=== PATIENT | male | born 1950 | race Caucasian/White ===

== ENCOUNTER 2017-04-01 10:18 | Inpatient (IN) | payer OTHER ==
[~2017-04-01] VITALS: Ht 190.5 cm; Wt 94.8 kg
--- NOTE | ~2017-04-01 | ST ---
[place], [place] EXERCISE STRESS TEST REPORT NAME: LOUANN GOODE UNIT #: [id number] ROOM: 402 DOCTOR: JOEY SAHU MD BIRTHDATE: [birth year] DOS: 04/02/2017 INDICATION: Chest pain. PROCEDURE: The patient was exercised on a treadmill using Nas protocol, the patient exercised for 7 minutes and 15 seconds, reaching 88% of his maximum predicted heart rate. Maximum work load was 9 mets. Test was terminated due to shortness of breath and achievement of target heart rate. The patient did develop chest pain, graded 2/10 late in the stress test and resolved within 1-2 minutes into recovery. BLOOD PRESSURE RESPONSE: Resting blood pressure 126/84 with ending blood pressure 160/60. ELECTROCARDIOGRAM INTERPRETATION: The resting electrocardiogram showed sinus bradycardia, heart rate of 59. RSR prime in V1, baseline PVCs were noticed. At the peak of the stress test, there was no evidence of any significant ST or T-wave changes suggestive of myocardial ischemia. No arrhythmias were noted. SUMMARY: 1. Adequate stress test with good functional capacity. 2. ____ treadmill stress test for stress induced myocardial ischemia by symptomatology. 3. Negative treadmill stress test for stress induced myocardial ischemia by EKG criteria. 4. Normal blood pressure at rest with normal blood pressure response to exercise. 5. No arrhythmias were noted. 6. Nuclear images will be reported separately. JOEY SAHU MD CM:STRESS:EXERCISE STRESS TEST REPORT [id number] JOEY SAHU MD
[2017-04-01 10:18] VITALS: BP 141/66
[2017-04-01 10:36] LABS: BASO % 0.4 % (0.0-1.0); EOS # 0.1 10*3/uL (0.0-0.4); EOS % 0.9 % (1.0-4.0); HEMATOCRIT 47.7 % (42.0-52.0); HEMOGLOBIN 15.8 g/dl (14.0-18.0); LYMPH # 2.1 10*3/uL (1.3-4.4); LYMPH % 24.3 % (27.0-41.0); MEAN CELL VOLUME 90.7 fl (80.0-94.0); MEAN CORPUSCULAR HGB CONC 33.1 g/dl (33.0-37.0); MEAN PLATELET VOLUME 8.9 fl (9.6-12.3); MONO # 0.6 10*3/uL (0.1-1.0); MONO % 6.7 % (3.0-9.0); NEUT # 5.7 10*3/uL (2.3-7.9); NEUT % 67.2 % (47.0-73.0); PLATELET COUNT AUTOMATED 178 10*3/uL (130-400); RED BLOOD COUNT 5.26 10*6/uL (4.50-5.90); RED CELL DISTRI WIDTH 12.7 % (0-14.5); WHITE BLOOD COUNT 8.5 10*3/uL (4.8-10.8)
[2017-04-01 10:45] LABS: ACT PARTIAL THROMBO TIME 26.4 SECONDS (20.8-31.5)
[2017-04-01 10:54] LABS: ALBUMIN 3.9 gm/dl (3.1-4.5); ALKALINE PHOSPHATASE 109 U/L (45-117); BUN 10 mg/dl (7-24); CHLORIDE 104 mmol/L (98-107); CKMB 1.6 ng/ml (0.5-3.6); CPK 93 U/L (39-308); CREATININE 0.98 mg/dL (0.70-1.30); LIPASE 434 U/L (73-393); MAGNESIUM 2.3 mg/dL (1.5-2.1); POTASSIUM 4.3 mmol/L (3.5-5.1); SGOT/AST 13 IU/L (3-35); SGPT/ALT 29 U/L (12-78); SODIUM 137 mmol/L (136-145); TOTAL PROTEIN 7.9 gm/dL (6.4-8.2)
[2017-04-01 11:30] VITALS: BP 128/71
[2017-04-01 11:35] LABS: TROPONIN I < 0.015 ng/ml (<0.045)
[2017-04-01 12:30] VITALS: BP 125/89
--- NOTE | 2017-04-01 12:31 | NUR ---
PT HAS REMAINED AWAKE AND ALERT. TELLS ME NOW THAT HE FEELS FINE AND HAS NO CO PAIN. HE WILL BE ADMITTED. RUI BOX
--- NOTE | 2017-04-01 12:58 | NUR ---
A 66, admitted to , under the services of URIEL Houston DO with a diagnosis of CHEST PAIN R/O AK. Chief complaint is FATIGUE, SWEATING, MIDSTERNAL CP. Patient arrived via ambulance from ER. Monitor applied. Initial assessment completed. Vital signs taken and recorded. URIEL HOUSTON DO notified of admission to the unit. Orders received. See assessment for past medical history, medications and allergies. Patient and/or family oriented to unit. [facility] visitation policy reviewed. Clothing/patient valuable form completed. BASSEM MCKINNEY
[2017-04-01 13:26] VITALS: BP 140/91
[2017-04-01] MEDS ORDERED: COLACE100 MG PO (13:30)
[2017-04-01] MEDS ORDERED: LIPITOR40 MG PO (13:31)
[2017-04-01] MEDS ORDERED: LOPRESSOR25 MG PO (13:31)
[2017-04-01] MEDS ORDERED: ZESTRIL2.5 MG PO (13:31)
--- NOTE | 2017-04-01 13:31 | NUR ---
HOME MEDS UPDATED BY LIST PROVIDED BY .
--- NOTE | 2017-04-01 14:20 | NUR ---
CALL PLACED TO DR LABOY AT THIS TIME TO INQUIRE ABOUT ADMISSION ORDERS AND TO NOTIFY THAT PT IS HERE ON THE FLOOR, NO COMPLAINTS.
--- NOTE | 2017-04-01 15:21 | NUR ---
SPOKE WITH YURIY FROM [facility]. NOTIFIED OF NEW CONSULT FOR PT.
[2017-04-01 16:00] VITALS: BP 126/75
--- NOTE | 2017-04-01 18:00 | NUR ---
PT RESTING IN BED, NO DISTRESS NOTED. CALL LIGHT WITHIN REACH. NPO AFTER MIDNIGHT STATUS REINFORCED.
[2017-04-01 20:00] VITALS: BP 120/57
[2017-04-02] VITALS: BP 108/69
--- NOTE | 2017-04-02 02:15 | NUR ---
DR. LARSON NOTIFIED THAT PATIETN HAD 3 BEATS OF 2ND DEGREE HEART BLOCK.
[2017-04-02 08:00] VITALS: BP 139/82
[2017-04-02 08:04] LABS: BASO % 0.4 % (0.0-1.0); EOS # 0.1 10*3/uL (0.0-0.4); EOS % 1.3 % (1.0-4.0); HEMATOCRIT 51.4 % (42.0-52.0); HEMOGLOBIN 17.4 g/dl (14.0-18.0); LYMPH # 1.7 10*3/uL (1.3-4.4); LYMPH % 24.1 % (27.0-41.0); MEAN CELL VOLUME 90.2 fl (80.0-94.0); MEAN CORPUSCULAR HGB 30.5 pg (27.0-31.0); MEAN CORPUSCULAR HGB CONC 33.9 g/dl (33.0-37.0); MEAN PLATELET VOLUME 9.3 fl (9.6-12.3); MONO # 0.5 10*3/uL (0.1-1.0); MONO % 7.5 % (3.0-9.0); NEUT # 4.7 10*3/uL (2.3-7.9); NEUT % 66.4 % (47.0-73.0); PLATELET COUNT AUTOMATED 192 10*3/uL (130-400); RED CELL DISTRI WIDTH 12.8 % (0-14.5)
--- NOTE | 2017-04-02 08:15 | NUR ---
PT VERY UPSET AT THIS TIME, WHEN THIS RN GOES INTO ASSESS PT ASKING HOW HE IS DOING, HE STATES "NOT REAL GOOD, NO ONE IS DOING ANYTHING FOR ME AND I HAVEN'T EVEN SEEN A HEART DOCTOR, WHICH IS WHY I'M HERE." EXPLAINED TO THE PT BECAUSE HE CAME IN YESTERDAY AFTERNOON THE PRECISE WINDER HAD ALREADY ROUNDED AND HE WOULD BE SEEN TODAY FOR HIS STRESS TEST AND HE IS GOING TO HAVE AN ECHOCARDIOGRAM DONE THIS MORNING WELL. EXPLAINED TO PT I WOULD CALL CARDIAC REHAB TO INQUIRE ABOUT THIS TIME OF HIS STRESS TEST. CALLED CARDIAC REHAB, THEY STATED PT WOULD BE DONE AT 0930. SPOKE WITH PT AND HE WAS HAPPY ABOUT THIS. CARDIAC REHAB THEN CALLED BACK, STATING THAT DR YOST WOULD BE PERFORMING THE STRESS TEST AND HE WOULDN'T BE IN UNTIL [id number]. SPOKE WITH SHIFT DIRECTOR REGARDING THIS, AND WE BOTH WENT IN TO UPDATE PT ON THIS CHANGE, PT UPSET, BUT VERBALIZED UNDERSTANDING.
[2017-04-02 08:37] LABS: BUN 13 mg/dl (7-24); CHLORIDE 104 mmol/L (98-107); CHOLESTEROL 132 mg/dL (<200); CREATININE 0.95 mg/dL (0.70-1.30); HDL CHOLESTEROL 42 mg/dl (40-60); LDL CHOLESTEROL 63 mg/dL (9-159); MAGNESIUM 2.5 mg/dL (1.5-2.1); PHOSPHOROUS 2.5 mg/dL (2.5-4.9); POTASSIUM 4.2 mmol/L (3.5-5.1); SODIUM 136 mmol/L (136-145); TRIGLYCERIDES 136 mg/dl (<150); VLDL CHOLESTEROL 27 mg/dL (6-40)
--- NOTE | 2017-04-02 09:00 | NUR ---
case management attempted to visit with patient, patient was out of room for testing, will see later today
--- NOTE | 2017-04-02 10:02 | NUR ---
PT OFF FLOOR FOR STRESS TEST.
--- NOTE | 2017-04-02 10:30 | NUR ---
INFORMED CONSENT OBTAINED FOR CARDIOLITE STRESS TEST WITH DR SAHU. RESTING EKG NSR WITH RARE PVC. SUPINE HR 60 WITH A BP OF 126/84. STANDING HR 68 WITH A BP OF 122/72. PT COMPLETED 7:15 MIN OF A VELIA PROTOCOL COMPLETING 1:15 OF STAGE III AT 3.4 MPH AND 14% GRADE. REACHED A PEAK HR OF 138 WHICH IS 88% OF PREDICTED MAX WITH A PEAK BP OF 190/80. TEST TERMINATED DUE TO FATIGUE. C/O CHEST HEAVINESS DURING STAGE II THAT WAS RELIEVED BY 2 MIN OF RECOVERY. HAS A GOOD EXERCISE TOLERANCE. LAST RECOVERY HR 98 AND BP OF 164/80. AWAITING SCANNING IN STABLE CONDITION.
--- NOTE | 2017-04-02 11:50 | NUR ---
SPOKE WITH DR LABOY REGARDING PT COMING BACK FROM STRESS TEST, STATES OK TO GIVE PT REGULAR DIET.
[2017-04-02 12:00] VITALS: BP 128/84
[2017-04-02] MEDS ORDERED: IMDUR SA30 MG PO (15:37)
[2017-04-02 16:00] VITALS: BP 138/74
--- NOTE | 2017-04-02 18:10 | NUR ---
PT BECOMING VERY IMPATIENT, IS INQUIRING ABOUT HIS DISCHARGE. EXPLAINED TO PT THAT WE ARE STILL AWAITING HIS ECHO RESULTS. SPOKE WITH DR LABOY REGARDING THE RESULTS, STATED IT STILL HASN'T BEEN READ, SHE IS GOING TO SPEAK WITH THE RESIDENT WITH THE CARDIOLOGY GROUP.
--- NOTE | 2017-04-02 18:35 | NUR ---
PER DR LABOY, PT OK TO BE DISCHARGED.
--- NOTE | 2017-04-02 18:53 | NUR ---
Discharge instructions reviewed with patient/family. Patient receptive and verbalizes understanding. Follow-up care arranged. Written instructions given to patient/family. Pt denied need for transport to [facility]. BASSEM MCKINNEY
== END 2017-04-02 18:53 | disposition home or self-care (01) | DRG 282 ==
LOC: ED 10:18 → 4E 12:13 → EDHOLD 12:13 → 4E 12:29
PROVIDERS: Family Medicine Adult Medicine; Internal Medicine; ADMIT Internal Medicine
PROC: 4A02XM4 Measurement of Cardiac Total Activity, External Approach (ICD-10-PCS; principal; 2017-04-02)
DX: I21.3 ST elevation (STEMI) myocardial infarction of unspecified site (principal); I44.1 Atrioventricular block, second degree; S29.011A Strain of muscle and tendon of front wall of thorax, initial encounter; I10 Essential (primary) hypertension; D72.810 Lymphocytopenia; R00.1 Bradycardia, unspecified; F41.9 Anxiety disorder, unspecified; K21.9 Gastro-esophageal reflux disease without esophagitis; E83.41 Hypermagnesemia; I48.0 Paroxysmal atrial fibrillation; E78.5 Hyperlipidemia, unspecified; E78.00 Pure hypercholesterolemia, unspecified; X58.XXXA Exposure to other specified factors, initial encounter; R73.9 Hyperglycemia, unspecified; Z87.891 Personal history of nicotine dependence; I25.2 Old myocardial infarction; Z82.49 Family history of ischemic heart disease and other diseases of the circulatory system; Z80.9 Family history of malignant neoplasm, unspecified; Z79.899 Other long term (current) drug therapy; Y93.89 Activity, other specified; Y92.89 Other specified places as the place of occurrence of the external cause; Y99.8 Other external cause status

== ENCOUNTER 2019-08-22 10:36 | Inpatient (IN) | payer OTHER, MEDICARE ==
[2019-08-22] VITALS (7 sets, daily range): BP systolic 125–181; BP diastolic 70–101
[~2019-08-22] VITALS: Ht 190.5 cm; Wt 93.2 kg
[~2019-08-22 10:36] MED LIST: ASPIRIN ADULT L81 M1 PO; COLACE100 MG PO; GLUCOPHAGE1000 MG PO; IMDUR SA30 MG PO; LIPITOR40 MG PO; LISINOPRIL5 MG PO; LOPRESSOR25 MG PO; TAMIFLU 75MG CA75 MG PO; ZESTRIL2.5 MG PO
[2019-08-22 11:02] LABS: BASO % 0.4 % (0.0-1.0); EOS # 0.2 10*3/uL (0.0-0.4); EOS % 1.9 % (1.0-4.0); HEMATOCRIT 47.3 % (42.0-52.0); HEMOGLOBIN 16.1 g/dl (14.0-18.0); LYMPH # 2.8 10*3/uL (1.3-4.4); LYMPH % 30.4 % (27.0-41.0); MEAN CELL VOLUME 88.1 fl (80.0-94.0); MEAN PLATELET VOLUME 9.9 fl (9.6-12.3); MONO # 0.7 10*3/uL (0.1-1.0); MONO % 7.2 % (3.0-9.0); NEUT # 5.6 10*3/uL (2.3-7.9); NEUT % 59.8 % (47.0-73.0); PLATELET COUNT AUTOMATED 256 10*3/uL (130-400); RED BLOOD COUNT 5.37 10*6/uL (4.50-5.90); RED CELL DISTRI WIDTH 12.4 % (0-14.5); WHITE BLOOD COUNT 9.3 10*3/uL (4.8-10.8)
[2019-08-22 11:41] LABS: ACT PARTIAL THROMBO TIME 26.2 SECONDS (20.0-32.1); INTERNATIONAL NORM RATIO 0.9 (2.0-3.5)
[2019-08-22 11:44] LABS: ALBUMIN 3.9 gm/dl (3.1-4.5); ALKALINE PHOSPHATASE 109 U/L (45-117); BUN 15 mg/dl (7-24); CHLORIDE 101 mmol/L (98-107); CREATININE 1.05 mg/dL (0.70-1.30); POTASSIUM 4.3 mmol/L (3.5-5.1); SGOT/AST 23 IU/L (3-35); SGPT/ALT 58 U/L (12-78); SODIUM 132 mmol/L (136-145); TOTAL PROTEIN 7.5 gm/dL (6.4-8.2)
[2019-08-22 11:46] LABS: TROPONIN I < 0.015 ng/ml (<0.045)
--- NOTE | 2019-08-22 14:20 | NUR ---
A 68, admitted to , under the services of GARY Bliss DO with a diagnosis of CHEST PAIN. Chief complaint is CHEST PAIN ACROSS CHEST, SOB. Patient arrived via bed from ER. Monitor applied. Initial assessment completed. Vital signs taken and recorded. GARY BLISS DO notified of admission to the unit. Orders received. See assessment for past medical history, medications and allergies. Patient and/or family oriented to unit. [facility]. Clothing/patient valuable form completed. ISAAC CANTOR
[2019-08-22] MEDS ORDERED: COLACE100 MG PO (15:15)
[2019-08-22] MEDS ORDERED: VIAGRA100 MG PO (15:16)
--- NOTE | 2019-08-22 20:00 | NUR ---
PT SITTING UP IN BED AWAKE, A&O, PLEASANT AND COOPERATIVE. RESP NONLABORED. NO ACUTE DISTRESS NOTED. NO COMPLAINTS VOICED. NO S/S OFHYPO/HYPERGLYCEMIA NOTED. HEPLOCKS PATENT.
--- NOTE | 2019-08-23 02:57 | NUR ---
Patient resting quietly with no c/o discomfort. Respirations easy and regular. No overt distress. CHICHO SOLIS
[2019-08-23 06:45] LABS: BASO % 0.6 % (0.0-1.0); EOS # 0.2 10*3/uL (0.0-0.4); EOS % 2.7 % (1.0-4.0); HEMATOCRIT 48.1 % (42.0-52.0); LYMPH # 2.3 10*3/uL (1.3-4.4); LYMPH % 32.7 % (27.0-41.0); MEAN CELL VOLUME 90.2 fl (80.0-94.0); MEAN CORPUSCULAR HGB CONC 33.3 g/dl (33.0-37.0); MEAN PLATELET VOLUME 9.1 fl (9.6-12.3); MONO # 0.6 10*3/uL (0.1-1.0); NEUT # 3.8 10*3/uL (2.3-7.9); NEUT % 54.6 % (47.0-73.0); PLATELET COUNT AUTOMATED 199 10*3/uL (130-400); RED BLOOD COUNT 5.33 10*6/uL (4.50-5.90); RED CELL DISTRI WIDTH 12.3 % (0-14.5)
[2019-08-23 07:09] LABS: BUN 18 mg/dl (7-24); CHLORIDE 102 mmol/L (98-107); CHOLESTEROL 108 mg/dL (<200); CREATININE 0.95 mg/dL (0.70-1.30); PHOSPHOROUS 3.9 mg/dL (2.5-4.9); POTASSIUM 3.9 mmol/L (3.5-5.1); SODIUM 133 mmol/L (136-145); TRIGLYCERIDES 205 mg/dl (<150); VLDL CHOLESTEROL 41 mg/dL (6-40)
[2019-08-23 07:20] LABS: HDL CHOLESTEROL 36 mg/dl (40-60); LDL CHOLESTEROL 31 mg/dL (9-159)
[2019-08-23 07:21] LABS: VITAMIN D, 25-HYDROXY 37.7 ng/mL (30-100)
[2019-08-23 08:00] VITALS: BP 142/75
[2019-08-23 08:10] VITALS: BP 142/88
--- NOTE | 2019-08-23 10:01 | NUR ---
PATIENT IN CARDIAC REHAB FOR STRESS TEST AT THIS TIME.
--- NOTE | 2019-08-23 10:55 | NUR ---
INFORMED SIGNED CONSENT OBTAINED FOR LEXISCAN STRESS TEST WITH DR LARSON. RESTING EKG NSR HR 80 T WAVE INVERSION AVR, AVL, AND . BP 126/80. PULSE OX 100% LUNGS CLEAR. PT COMPLETED ONE MINUTE OF A LEXISCAN PROTOCOL WITH PT RECEIVING LEXISCAN 0.4MG IV OVER 10 SECONDS. RARE PVC NOTED. NO ST CHANGES SEEN. PT C/O SOB WITH INJECTION. LAST RECOVERY HR OF 109 BP 122/68. PT IN STABLE CONDITION, AWAITING NUCLEAR IMAGES.
--- NOTE | 2019-08-23 11:19 | NUR ---
Undercoater in to talk to patient. Patient states lives at HOME with . There are 4 OUTSIDE steps in the home. Physician: PACHECO SPEARS [facility]acy: [place] [facility] health services: NONE Patient's level of ADLs: INDEPENDENT Patient has working utilities: YES DME: NONE Follow-up physician's appointment after d/c: WILL BE MADE BY HOSPITALIST NURSE DIRECTOR ON DISCHARGE Does patient want to access PORTAL?: NO Discharge plan PT LIVES AT HOME WITH HIS AND IS INDEPENDENT IN HIS CARE.DENIES HE WILL HAVE ANY NEEDS ON DISCHARGE. PLANS TO RETURN HOME WHEN MEDICALLY STABLE. WILL CONTINUE TO FOLLOW. PT STATES HE WILL HAVE A RIDE HOME.. ANGEL BOOGIE
--- NOTE | 2019-08-23 11:47 | NUR ---
PATIENT RETURNED FROM STRESS TEST, RESUMING MEDS AND DIET.
--- NOTE | 2019-08-23 12:40 | NUR ---
PATIENT INSTRUCTED IN USE OF LANTUS INSULIN; PATIENT WIPED OFF VIAL WITH ALCOHOL, INJECTED 10 UNITS OF AIR INTO VIAL, JUAN UP 10 UNITS OF LANTUS CORRECTLY WITH HELP, SELECTED INJECTION SITE TO LEFT ABDOMEN AND CLEANSED WITH ALCOHOL SWAB PRIOR TO INJECTING THE MEDICATION. REQUIRES MORE INSTRUCTION AND PRACTICE BEFORE SELF-SUFFICIENT WITH INSULIN MANAGEMENT AT HOME, WHICH MAY BE NECESSARY IN THE NEAR FUTURE, PER HOSPITALISTS. PATIENT IS TO FOLLOW UP WITH HIS DOCTOR UPON DISCHARGE TO DISCUSS HIS OPTIONS RE: DIABETES.
--- NOTE | 2019-08-23 14:37 | NUR ---
PER DR. PALACIO, PATIENT'S STRESS TEST IS NEGATIVE AND OK TO DISCHARGE FROM CARDIOLOGY STANDPOINT. DR. MOREAU NOTIFIED.
[2019-08-23] MEDS ORDERED: HUMALOG100 UNIT/1 SC (15:23)
[2019-08-23] MEDS ORDERED: LANTUS SOL100 UNIT/1 SQ (15:23)
--- NOTE | 2019-08-23 15:45 | NUR ---
PATIENT WILL BE GOING HOME WITH PRESCRIPTION FOR INSULIN PENS FOR LANTUS AND HUMALOG WITH SLIDING SCALE. [facility] AND WILL FOLLOW UP WITH HIS PHYSICIAN THERE IN A WEEK OR SOONER. HE HAS BEEN INSTRUCTED TO ATTEND DIABETIC TEACHING CLASSES PROVIDED BY THE HOSPITAL AND HAS BEEN GIVEN THAT INFORMATION. PER PHARMACY, HE MAY ALSO COME IN TOMORROW FOR ADDITIONAL INSTRUCTION BY THE PHARMACIST IF NEEDED. I WILL INSTRUCT THE PATIENT WITH INSULIN SLIDING SCALE PRIOR TO DISCHARGE TODAY ALSO. PREPARING FOR DISCHARGE HOME WITH .
[2019-08-23] MEDS ORDERED: PEN NEEDLE1 EAC2 MC (15:59)
[2019-08-23 16:00] VITALS: BP 139/65
--- NOTE | 2019-08-23 16:30 | NUR ---
PATIENT INSTRUCTED IN USE OF SLIDING SCALE FOR BSG OF 235. PER PATIENT HE HAS A GLUCOMETER AT HOME AND NEEDS NO EDUCATION ON HOW TO CHECK SUGARS WITH A METER. PATIENT CORRECTLY IDENTIFIED CORRECT DOSE ON SLIDING SCALE WHICH HE WILL ALSO BE USING AT HOME, USED CORRECT TECHNIQUE IN DRAWING UP INSULIN AND SELF-ADMINISTERING. PROVIDED ADDITIONAL EDUCATION ON DIFFERENCE BETWEEN LANTUS AND HUMALOG AND WHEN TO NOT ADMINISTER THESE INSULINS. Discharge instructions reviewed with patient/family. Patient receptive and verbalizes understanding. Follow-up care arranged. Written instructions given to patient/family. PATIENT DISCHARGED TO [facility], FOR TRANSPORT HOME BY PRIVATE VEHICLE WITH HIS . LOIS ZELAYA
== END 2019-08-23 16:30 | disposition home or self-care (01) | DRG 392 ==
LOC: ED 10:36 → 5E 13:25 → EDHOLD 13:25 → 5E 13:43
PROVIDERS: Emergency Medicine; Internal Medicine; ADMIT Internal Medicine
PROC: 3E073KZ Introduction of Other Diagnostic Substance into Coronary Artery, Percutaneous Approach (ICD-10-PCS; principal; 2019-08-23)
PROC: 4A02XM4 Measurement of Cardiac Total Activity, External Approach (ICD-10-PCS; principal; 2019-08-23)
DX: K21.9 Gastro-esophageal reflux disease without esophagitis (principal); E44.0 Moderate protein-calorie malnutrition; E87.1 Hypo-osmolality and hyponatremia; I48.91 Unspecified atrial fibrillation; R73.9 Hyperglycemia, unspecified; I10 Essential (primary) hypertension; E78.00 Pure hypercholesterolemia, unspecified; I25.10 Atherosclerotic heart disease of native coronary artery without angina pectoris; Z68.25 Body mass index [BMI] 25.0-25.9, adult; I25.2 Old myocardial infarction; Z95.5 Presence of coronary angioplasty implant and graft; Z79.82 Long term (current) use of aspirin; Z79.899 Other long term (current) drug therapy; Z87.891 Personal history of nicotine dependence; Z82.49 Family history of ischemic heart disease and other diseases of the circulatory system; Z80.8 Family history of malignant neoplasm of other organs or systems

== ENCOUNTER 2020-06-18 10:04 | Observation (INO) | payer OTHER ==
[2020-06-18] VITALS (7 sets, daily range): BP systolic 115–157; BP diastolic 61–102
[~2020-06-18] VITALS: Ht 190.5 cm; Wt 97.6 kg
[~2020-06-18 10:04] MED LIST changes: +HUMALOG100 UNIT/1 SC; +LANTUS SOL100 UNIT/1 SQ; +PEN NEEDLE1 EAC2 MC; +VIAGRA100 MG PO
[2020-06-18 10:23] LABS: BASO % 0.4 % (0.0-1.0); EOS # 0.1 10*3/uL (0.0-0.4); EOS % 1.9 % (1.0-4.0); LYMPH # 1.5 10*3/uL (1.3-4.4); LYMPH % 21.4 % (27.0-41.0); MEAN CELL VOLUME 89.6 fl (80.0-94.0); MEAN CORPUSCULAR HGB 29.3 pg (27.0-31.0); MEAN CORPUSCULAR HGB CONC 32.7 g/dl (33.0-37.0); MEAN PLATELET VOLUME 8.8 fl (9.6-12.3); MONO # 0.5 10*3/uL (0.1-1.0); MONO % 7.7 % (3.0-9.0); NEUT # 4.8 10*3/uL (2.3-7.9); NEUT % 68.3 % (47.0-73.0); PLATELET COUNT AUTOMATED 200 10*3/uL (130-400); RED BLOOD COUNT 5.69 10*6/uL (4.50-5.90)
[2020-06-18 10:35] LABS: ACT PARTIAL THROMBO TIME 29.5 SECONDS (20.0-32.1); INTERNATIONAL NORM RATIO 0.9 (2.0-3.5)
[2020-06-18 10:40] LABS: ALKALINE PHOSPHATASE 99 U/L (45-117); BUN 15 mg/dl (7-24); CHLORIDE 109 mmol/L (98-107); CREATININE 0.99 mg/dL (0.70-1.30); POTASSIUM 4.2 mmol/L (3.5-5.1); SGOT/AST 15 IU/L (3-35); SGPT/ALT 33 U/L (12-78); SODIUM 138 mmol/L (136-145); TOTAL PROTEIN 8.2 gm/dL (6.4-8.2)
[2020-06-18 10:43] LABS: TROPONIN I < 0.015 ng/ml (<0.045)
--- NOTE | 2020-06-18 11:27 | NUR ---
PATIENT HAS A SMALL CUT TO LEFT ELBOW THAT HAPPENED AT HOME THIS MORNING. PATIENT DOES NOT WANT PHOTOGRAPHED AND REPORTS THAT HE HAS NO CONCERN ABOUT IT HAPPENING HERE BECAUSE HE DID IT AT HOME BY ACCIDENT. COVERED WITH BANDAID AT THIS TIME. NOT VISUALIZED. NO ACTIVE BLEEDING.
--- NOTE | 2020-06-18 12:13 | NUR ---
A 69, admitted to , under the services of URIEL Houston DO with a diagnosis of CHEST PAIN. Chief complaint is CHEST PRESSURE THAT STARTED 12/3 AND IS CONSTANT. Patient arrived via bed from ER. Monitor applied. Initial assessment completed. Vital signs taken and recorded. URIEL HOUSTON DO notified of admission to the unit. Orders received. See assessment for past medical history, medications and allergies. Patient and/or family oriented to unit. [facility] visitation policy reviewed. Clothing/patient valuable form completed. ISAAC CANTOR
[2020-06-18] MEDS ORDERED: METFORMIN HYD1000 MG PO (12:31)
[2020-06-18] MEDS ORDERED: JARDIANCE25 MG PO (12:32)
[2020-06-18] MEDS ORDERED: LANTUS SOL100 UNIT/1 SC (12:33)
--- NOTE | 2020-06-18 18:29 | NUR ---
SPOKE WITH AT THIS TIME - HE IS AWARE OF CONSULT.
--- NOTE | 2020-06-18 21:40 | NUR ---
PAITENT RESTING IN BED. VOICES NO COMPLAINTS. RESPIRATIONS EASY,NON LABORED. DENIES CP. VSS. BED IN LOWEST POSITION,CALL LIGHT WITHIN REACH. WILL CONTINUE TO MONITOR.
[2020-06-19] VITALS: BP 135/82
[2020-06-19 06:37] LABS: BASO # 0.1 10*3/uL (0.0-0.1); BASO % 0.6 % (0.0-1.0); EOS # 0.3 10*3/uL (0.0-0.4); HEMATOCRIT 51.7 % (42.0-52.0); LYMPH # 2.2 10*3/uL (1.3-4.4); LYMPH % 28.1 % (27.0-41.0); MEAN CELL VOLUME 90.5 fl (80.0-94.0); MEAN CORPUSCULAR HGB 29.4 pg (27.0-31.0); MEAN CORPUSCULAR HGB CONC 32.5 g/dl (33.0-37.0); MEAN PLATELET VOLUME 8.9 fl (9.6-12.3); MONO # 0.6 10*3/uL (0.1-1.0); NEUT # 4.6 10*3/uL (2.3-7.9); PLATELET COUNT AUTOMATED 213 10*3/uL (130-400); RED BLOOD COUNT 5.71 10*6/uL (4.50-5.90); RED CELL DISTRI WIDTH 13.2 % (0-14.5); WHITE BLOOD COUNT 7.8 10*3/uL (4.8-10.8)
[2020-06-19 06:55] LABS: ALBUMIN 3.9 gm/dl (3.1-4.5); ALKALINE PHOSPHATASE 93 U/L (45-117); BUN 17 mg/dl (7-24); CHLORIDE 106 mmol/L (98-107); CHOLESTEROL 113 mg/dL (<200); CREATININE 1.04 mg/dL (0.70-1.30); HDL CHOLESTEROL 46 mg/dl (40-60); LDL CHOLESTEROL 41 mg/dL (9-159); POTASSIUM 4.4 mmol/L (3.5-5.1); SGOT/AST 16 IU/L (3-35); SGPT/ALT 33 U/L (12-78); SODIUM 138 mmol/L (136-145); TOTAL PROTEIN 7.9 gm/dL (6.4-8.2); TRIGLYCERIDES 131 mg/dl (<150); VLDL CHOLESTEROL 26 mg/dL (6-40)
[2020-06-19 06:56] LABS: FREE T4 1.03 ng/dl (0.76-1.46)
[2020-06-19 08:00] VITALS: BP 134/80
[2020-06-19 08:07] LABS: VITAMIN D, 25-HYDROXY 38.8 ng/mL (30-100)
--- NOTE | 2020-06-19 09:08 | NUR ---
PT RESTING IN BED. NO DISTRESS NOTED. SELENA MONITOR
--- NOTE | 2020-06-19 10:00 | NUR ---
Received call from Rupert at the [facility]. Given clinical update. He states he will call again tomorrow to check on patient.
--- NOTE | 2020-06-19 10:30 | NUR ---
INFORMED CONSENT SIGNED FOR LEXISCAN STRESS TEST WITH DR. LARSON. RESTING EKG NSR, HR 69, BP 130/72. PULSE OX 98% AND BREATH SOUNDS DIMINISHED BILATERALLY. COMPLETED ONE MINUTE OF LEXISCAN PROTOCOL RECEIVING LEXISCAN 0.4MG OVER [address] SEC[address]RHYTHMI[address] OR [address] CHANGES NOTED. PT HAD EMESIS AND C/O SOB. LAST RECOVERY HR 103, BP 136/86. WAITING NUCLEAR SCANNING IN STABLE CONDITION.
[2020-06-19 12:00] VITALS: BP 134/25
[2020-06-19] MEDS ORDERED: IMDUR SA30 MG PO (12:41)
--- NOTE | 2020-06-19 13:00 | NUR ---
Discharge Plannerin to talk to patient in his room. Pt. sitting up in chair. Patient states lives at with . There are NO steps in the home. Physician: DR. BERGMAN AT THE [facility] IN [place], [place] Pharmacy: [facility] Home health services: N/A Patient's level of ADLs: INDEPENDENT Patient has working utilities: YES DME: N/A Follow-up physician's appointment after d/c: PT. PREFERS TO MAKE HIS OWN FOLLOW UP APPOINTMENTS Does patient want to access PORTAL?: DECLINES Discharge plan PT. WILL RETURN HOME AT DISCHARGE. PT. IS INDEPENDENT IN HIS CARE AND ADL'S PT. LIVES WITH HIS AND VOICED NO CONCERNS AT HOME. WILL PROVIDE TRANSPORTATION AT DISCHARGE.. MEKA KOHLER S
--- NOTE | 2020-06-19 14:00 | NUR ---
Discharge instructions reviewed with patient/family. Patient receptive and verbalizes understanding. Follow-up care arranged. Written instructions given to patient/family. FAINA BARRERA
== END 2020-06-19 14:00 | disposition home or self-care (01) ==
LOC: ED 10:04 → 5E 11:15 → EDHOLD 11:15 → 5E 11:21
PROVIDERS: Emergency Medicine; Hospitalist; ADMIT Internal Medicine; ATTEND Internal Medicine
DX: R07.89 Other chest pain (principal); E11.65 Type 2 diabetes mellitus with hyperglycemia; R00.0 Tachycardia, unspecified; E87.8 Other disorders of electrolyte and fluid balance, not elsewhere classified; R45.0 Nervousness; I10 Essential (primary) hypertension; I25.10 Atherosclerotic heart disease of native coronary artery without angina pectoris; F12.90 Cannabis use, unspecified, uncomplicated; Z98.890 Other specified postprocedural states; Z20.828 Contact with and (suspected) exposure to other viral communicable diseases; Z87.891 Personal history of nicotine dependence